=== PATIENT | male | born 2000 | race Caucasian/White ===

== ENCOUNTER 2024-10-15 13:32 | Emergency (ER) | payer OTHER, SELFPAY ==
[2024-10-15 14:07] VITALS: BP 145/77; PULSE 66; RESP 16; TEMP 36.8; O2SAT 99; BMI 25.5
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
--- NOTE | 2024-10-15 14:17 | PC.NURSE ---
Pt seem by provider and states UTD on Tetanus.
[2024-10-15] MEDS: Bacitracin Oint 0.9 GM PACKET 1 APPL TOPICAL (14:30)
[2024-10-15 14:35] VITALS: BP 145/77; PULSE 66; RESP 16; TEMP 36.8; O2SAT 99
--- OUTSIDE RECORDS SUMMARY | 2024-10-15 14:36 | XMS_ITS | Encounter Summary ---
Author Organization [facility] Address [address] [place] [address] Care Team Providers Care General Milling Superintendent Name Role Phone Ariadna Noland MD Primary Care Provider [phone] Encounter Details Date Type Department Care Team (Late st Contact Info) Description 09/29/2015 Scanned Document [facility] [address] [address] Pranav Do MD [address] [place] [phone] Social History Tobacco Use Types Packs/Day Years Used Date Smoking Tobacco: Never Alcohol Use Standard Drinks/Week Comments No 0 (1 standard drink = 0.6 oz pur e alcohol) Sex and Gender Information Value Date Recorded Sex Assigned at Male 09/22/2020 11:54 AM EDT Legal Sex Male 6:56 AM EST Gender Identity Male 09/22/2020 11:54 AM EDT Sexual Orientation Not on file documented as of this encounter Plan of Treatment Not on file documented as of this encounter Visit Diagnoses Not on filedocumented in this encounter Additional Health Concerns Infection Onset Date Last Indicated Resolved Time COVID-19 06/07/2021 06/07/2021 06/17/2021 7:18 PM EST documented as of this encounter Care Teams General Milling Superintendent Relationship Specialty Start Date End Date Ariadna Noland MD [address] [facility] [address] [place] [phone] PCP - General Pediatrics 10/06/13 03/28/24 documented as of this encounter
--- OUTSIDE RECORDS SUMMARY | 2024-10-15 14:36 | XMS_ITS | Encounter Summary ---
Author Organization [facility] Address [address] [place] [address] Care Team Providers Care Record Changer Tester Name Role Phone Ariadna Noland MD Primary Care Provider [phone] Encounter Details Date Type Department Care Team (Late st Contact Info) Description 10/27/2015 Scanned Document [facility] [address] [id number] Pranav Do MD [address] [place] [phone] Social History Tobacco Use Types Packs/Day [...] documented as of this encounter Care Teams Record Changer Tester Relationship Specialty Start Date End Date Ariadna Noland MD [address] [facility] [address] [place] [phone] PCP - General Pediatrics 10/06/13 03/28/24 documented as of this encounter
--- OUTSIDE RECORDS SUMMARY | 2024-10-15 14:37 | XMS_ITS | Clinical Summary ---
Author Organization [facility] Address [address] [place] [address] Care Team Providers Care Catastrophe Claims Supervisor Name Role Phone Pcp, No Primary Care Provider Unavailabl e Allergies No known active allergies Medications No known medications Social History Tobacco Use Types Packs/Day Years Used Date Smoking Tobacco: Never Smokeless Tobacco: Never Alcohol Use Standard Drinks/Week Comments Never 0 (1 standard drink = 0.6 oz pur e alcohol) AUDIT-C Answer Date Recorded Q1: How often do you have a drink containing alc ohol? Never 08/20/2020 Average Number of Drinks Not on file 021 Frequency of Binge Drinking Not on file 12/2020 Sex and Gender Information Value Date Recorded Sex Assigned at Not on file Legal Sex Male 3:06 PM EST Gender Identity Not on file Sexual Orientation Not on file Last Filed Vital Signs Vital Sign Reading Time Taken Comments Blood Pressure 144/78 08/20/2020 9:51 AM EST Pulse 73 08/20/2020 9:51 AM EST Temperature 36.8 ??C (98.2 ??F) 08/20/2020 9:51 AM ES T Respiratory Rate - - Oxygen Saturation 98% 08/20/2020 9:51 AM EST Inhaled Oxygen Concentration - - Weight 79.4 kg (175 lb) 08/20/2020 9:51 AM EST Height 182.9 cm (6') 08/20/2020 9:51 AM EST Body Mass Index 23.73 08/20/2020 9:51 AM EST Plan of Treatment Health Maintenance Due Date Last Done Comments Hepatitis C Virus Screening 2000 HIV Screening 2013 HPV Vaccines (1 - Male 3-dos e series) 2015 DTaP/Tdap/Td Vaccines (1 - Tdap) 2019 Hepatitis B Vaccines (1 of 3 - 19+ 3-dose series) 2019 Influenza Vaccine 01/15/2024 COVID-19 Vaccine (1 - 2023-2 5 season) 2024 Pneumococcal Vaccine: Pediat ismael (0-5 Years) and At-Risk Patients (6 to 49 Years) Aged Out No longer eligible b ased on patient's age to complete this topic Insurance O Care Teams Catastrophe Claims Supervisor Relationship Specialty Start Date End Date Pcp, No PCP - General General Medicine 08/20/20
--- OUTSIDE RECORDS SUMMARY | 2024-10-15 14:37 | XMS_ITS | Encounter Summary ---
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); Asteatosis cutis; Fixed drug eruption; Diseases of lips Social History Tobacco Use Types Packs/Day Years Used Date Smoking Tobacco: Never Smokeless Tobacco: Never Alcohol Use Standard Drinks/Week Comments No 0 (1 standard drink = 0.6 oz pur e alcohol) PHQ-2 Answer Date Recorded PHQ-2 Total Score 0 11/15/2021 Sex and Gender Information Value Date Recorded Sex Assigned at Male 09/22/2020 11:54 AM EDT Legal Sex Male 6:56 AM EST Gender Identity Male 09/22/2020 11:54 AM EDT Sexual Orientation Not on file documented as of this encounter Plan of Treatment Not on file documented as of this encounter Results * Triglycerides (09/14/2024 8:10 AM EDT) Triglycerides 73 See Comment mg/dL 09/14/2024 8:34 PM EDT PENDING SALE TO [facility] Comment: Triglycerides (mg/dL) ?Adults (>18 years) ? Children (<18 years) Desirable ?<150 ? Not Established Borderline-High ?150-199 ?Not Established High ? 200-499 ?Not Established ?? 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
--- OUTSIDE RECORDS SUMMARY | 2024-10-15 14:37 | XMS_ITS | Encounter Summary ---
Author Organization [facility] Address [address] [place] [phone] Care Team Providers Care Warehouse Operator Name Role Phone Ariadna Noland MD Primary Care Provider Encounter Details Date Type Department Care Team (Late st Contact Info) Description 07/25/2021 Scanned Document INTERFACE DEFAULT [address] [place] [phone] System, Provider Not In Social History Tobacco Use Types Packs/Day Years Used Date Smoking Tobacco: Never Smokeless Tobacco: Never Alcohol Use Standard Drinks/Week Comments No 0 (1 standard drink = 0.6 oz pur e alcohol) PHQ-2 Answer Date Recorded PHQ-2 Total Score 0 08/18/2020 Sex and Gender Information Value Date Recorded Sex Assigned at Male 09/22/2020 11:54 AM EDT Legal Sex Male 6:56 AM EST Gender Identity Male 09/22/2020 11:54 AM EDT Sexual Orientation Not on file documented as of this encounter Plan of Treatment Not on file documented as of this encounter Visit Diagnoses Not on filedocumented in this encounter Additional Health Concerns Assessment Noted Time PHQ-9 Depression Total Score: 1 08/19/19 21 11:49 AM EST documented as of this encounter Care Teams Warehouse Operator Relationship Specialty Start Date End Date Ariadna Noland MD [address] [phone] PCP - General Pediatrics 10/06/13 03/28/24 documented as of this encounter
--- OUTSIDE RECORDS SUMMARY | 2024-10-15 14:37 | XMS_ITS | Encounter Summary ---
Author Organization [facility] Address [address] [place] [address] Care Team Providers Care Print Shop Stenographer Name Role Phone Ariadna Noland MD Primary Care Provider [phone] Encounter Details Date Type Department Care Team (Late st Contact Info) Description 11/12/2018 Scanned Document [place] [address] External, Provider Social History Tobacco Use Types Packs/Day Years [...] COVID-19 06/07/2021 06/07/2021 06/17/2021 7:18 PM EST Assessment Noted Time PHQ-9 Depression Total Score: 0 01/17/20 18 3:11 PM EDT documented as of this encounter Care Teams Print Shop Stenographer Relationship Specialty Start Date End Date Ariadna Noland MD [address] [facility] [address] [place] [phone] PCP - General Pediatrics 10/06/13 03/28/24 documented as of this encounter
--- OUTSIDE RECORDS SUMMARY | 2024-10-15 14:37 | XMS_ITS | Encounter Summary ---
Author Organization 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 Children (<18 years) Desirable ?<150 ? Not Established Borderline-High ?150-199 ?Not Established High ? 200-499 ?Not Established ?? Blood Venipuncture / Unknown 07/26/2024 1:36 PM EST 07/26/2024 1:36 PM EST us Norma Neff MD LAB BLOOD ORDERABLES Final Resul t [facility] [address] [place] [address], 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
--- OUTSIDE RECORDS SUMMARY | 2024-10-15 14:37 | XMS_ITS | Clinical Summary ---
Author Organization [address] Address [address] [place] [phone] Care Team Providers Care Cotton Feeder Name Role Phone Unavailable Primary Care Provider Unavailabl e Allergies No known active allergies Medications CLARAVIS 40 mg capsule 06/07/2021 Active meloxicam (MOBIC) 15 mg tablet Take 1 tablet (15 mg total) by mouth daily. 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 Do., had surgery. Wears contacts. 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 06/16/19 23 Overview (03/17/2015): 02/24/2015 Dr Pranav Do S/p strabismus repair - unable to correct strabismus with prescription Discussed surgery if desires Encounters Date Type Department Care Team Description 09/14/2024 8:07 AM EDT - 09/14/2024 11:59 PM EDT Hospital Encounter [address] [place] [address] Norma Neff MD 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; Asteatosis cutis; Fixed drug eruption; Diseases of lips Discharge Disposition: Home or Self Care 09/14/2024 Transcribed Orders [address] [place] [address] Norma Neff MD 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); Asteatosis cutis; Fixed drug eruption; Diseases of lips 07/26/2024 1:33 PM EST - 07/26/2024 11:59 PM EST Hospital Encounter [address] [place] [address] Norma Neff MD 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; Asteatosis cutis; Diseases of lips Discharge Disposition: Home or Self Care 07/26/2024 Transcribed Orders [address] [place] [address] Norma Neff MD 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); Asteatosis cutis; Diseases of lips from Last 3 Months Immunizations Name Administration Dates Next Due COVID-19 Vaccine - PFIZER 08/06/2021,10/13/2020, 09/22/2020 DTaP 08/17/2004, 2,01/12/2001,11/03,2000 HPV9 07/24/2016,03/18/2016,12/08/2015 Hep A, ped/adol, 2 dose 11/04/2011,08/10/2010 Hep B, adolescent or pediatric 02/07/2003,2000,2000 Hib (PRP-T) 09/02/2001, 1,01/12/2001,11/03 Influenza, injectable, quadr ivalent, preservative free 06/22/2021 MMR 08/17/2004,06/22/2001 Meningococcal MCV4P - Menactra 12/16/2016,2011 Pneumococcal conjugate PCV 7 01/12/2001,11/04/19,2000 Polio (IPV) 08/17/2004, 2,2000,08/01 TB Screening (PPD/Quantiferon) 10/10/2017,2016 Tdap 08/18/2020,11/07/2010 Varicella, live 10/30/2009,12/02/2001 Family History Medical History Relation Name Comments Lymphoma Father Diabetes Paternal Grandmother High cholesterol Paternal Grandmother Hypertension Paternal Grandmother Relation Name Status Comments Father Alive Maternal Grandfather Alive Maternal Grandmother Alive Mother Leanna Graves Alive Other Jean-Pierre Stovall Alive step dad Paternal Grandfather Paternal Grandmother Alive Social History Tobacco Use Types Packs/Day Years [...] AM EDT Sexual Orientation Not on file Last Filed Vital Signs Vital Sign Reading Time Taken Comments Blood Pressure 120/64 06/14/2022 4:40 PM EST Pulse 66 05/06/2023 1:41 PM EST Temperature 36.6 ??C (97.9 ??F) 10/31/2021 9:41 AM ED T Respiratory Rate 16 05/06/2023 1:41 PM EST Oxygen Saturation 99% 05/06/2023 1:41 PM EST Inhaled Oxygen Concentration - - Weight 87.1 kg (192 lb) 05/06/2023 1:41 PM EST Height 185.4 cm (6' 1 ) 05/06/2023 1:41 PM EST Body Mass Index 25.33 05/06/2023 1:41 PM EST Plan of Treatment Health Maintenance Due Date Last Done Comments Hepatitis C screening 2018 Covid-19 vaccine series ( - season) 2024 08/06/2021, 10/13/2020, 09/22/2020 Influenza vaccine 02/14/2025 06/22/2021 DTaP/TDaP Vaccines (8 - Td or Tdap) 08/18/2030 08/18/2020, 11/07/2010, 08/17/2004, Additional history exists Tetanus adult (Td q 10,TDAP once) 08/18/2030 08/18/2020, 11/07/2010, 08/17/2004, Additional history exists RSV Immunization (1 - 1-dose 75+ series) 2075 Pneumococcal Vaccine (2 - 49 years) Aged Out 01/12/2001, 2000, 2000 No longer eligible based on patient's age to complete this topic HIB Vaccines Completed 09/02/2001, 03/17, 01/12/2001, Additional history exists Hepatitis B vaccine series Completed 02/07, 04/13/2001, 2000 IPV Vaccines Completed 08/17/2004, 11/14, 2000, Additional history exists MMR Vaccines Completed 08/17/2004, 06/22/2001 Varicella Vaccines Completed 10/30/2009, 12/02/2001 Hepatitis A Vaccines Completed 11/04/2011, 08/10/19 11 HPV vaccine series Completed 07/24/2016, 1 , 12/08/2015 Meningococcal Vaccine Completed 12/16/2016, 012 HIV screening Discontinued Rotavirus Vaccines Aged Out No longer eligible based on patient's age to complete this topic Procedures Procedure Name Priority Date/Time Associated Diagnosis Comments TRIGLYCERIDES Routine 09/14/2024 8:10 AM EDT 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 Triglycerides 73 See Comment mg/dL 09/14/2024 8:34 PM EDT [facility] Comment: Triglycerides (mg/dL) ?Adults (>18 years) ? Children (<18 years) Desirable ?<150 ? Not Established Borderline-High ?150-199 ?Not Established High ? 200-499 ?Not Established ?? Blood Venipuncture / Unknown 09/14/2024 8:10 AM EDT 09/14/2024 8:10 AM EDT us Norma Neff MD LAB BLOOD ORDERABLES Final Resul t [facility] [address] [place] [address] * ALT (07/26/2024 1:36 PM EST) Alanine Aminotransferase (ALT) 24 9 - 59 U/L 07/26/2024 9:38 PM EST [facility] Comment:Calcium dobesilate c an cause artificially low ALT results at therapeutic concentrations Blood Venipuncture / Unknown 07/26/2024 1:36 PM EST 07/26/2024 1:36 PM EST us Norma Neff MD LAB BLOOD ORDERABLES Final Resul t [facility] [address] [place] [address] from Last 3 Months Insurance [employer] on file [employer] on file CIGNA on file CIGNA on file on file on file CIGNA on file CIGNA on file CIGNA [facility]
--- OUTSIDE RECORDS SUMMARY | 2024-10-15 14:37 | XMS_ITS | Encounter Summary ---
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 Children (<18 years) Desirable ?<200 ? <170 Borderline-High ?200-239 ?170-199 High ? >=240 ?>=200 ? HDL 54 >=40 mg/dL 03/26/2021 5:06 PM T [facility] Triglycerides 50 See Comment mg/dL 03/26/2021 5:06 PM T [facility] Comment: Triglycerides (mg/dL) ?Adults (>18 years) ? Children (<18 years) Desirable ?<150 ? Not Established Borderline-High ?150-199 ?Not Established High ? 200-499 ?Not Established ?? Chol/HDL Ratio 2.9 0.0 - 5.0 03/26/2021 5:06 PM [facility] LDL Calculated 91 See Comment mg/dL 03/26/2021 5:06 PM [facility] Comment: LDL Cholesterol (mg/dL) ?Adults (>18 years) ? Children (<18 years) Desirable ?<100 ? <110 Above Desirable ?100-129 ?Not Established Borderline-High ?130-159 ?110- 129 High ? 160-189 ?>=130 Very High? >=190 ? Not Established Blood Venipuncture / Unknown 03/26/2021 12:07 PM EDT 03/26/2021 12:07 PM EDT us Minnie Mckeon APRN LAB BLOOD ORDERABLES Final Re sult Performing Organization Address City/State/[facility] Co de Phone Number [address] [phone] * (ABNORMAL) Hepatic function panel (03/26/2021 12:07 PM EDT) Total Bilirubin 0.7 <=1.2 mg/dL 03/26/20 5:06 PM [facility] Bilirubin, Direct <0.2 <=0.3 mg/dL 2020 5:06 PM [facility] Alkaline Phosphatase 72 9 - 122 U/L 04/2021 5:06 PM T [facility] Alanine Aminotransferase (ALT) 25 9 - 59 U/L 03/26/2021 5:06 PM T [facility] Comment:Calcium dobesilate c an cause artificially low ALT results at therapeutic concentrations Aspartate Aminotransferase (AST) 48(H) 10 - 35 U/L 03/26/2021 5:06 PM [facility] AST/ALT Ratio 1.9 See Comment 03/26/2021 5:06 PM [facility] Comment: Adult with mild elevations of transaminases (< 5 times upper limit of normal): AST/ALT > 2 suggests alcoholic liver injury AST/ALT < 1 suggests non-alcoholic fatty liver disease (NAFLD) [place] (healthy): AST/ALT can be > 3 on day 0 AST/ALT < 2 by day 5 The thresholds provided focus on the most common etiologies of elevated serum transaminase levels and the associated alteration of AST:ALT ratios; they are not intended to exclude other feasible and clinically appropriate possibilities Total Protein 7.0 6.6 - 8.7 g/dL 03/26/2021 5:06 PM EDT [facility] Albumin 4.4 3.6 - 4.9 g/dL 03/26/2021 5:06 PM EDT [facility] Globulin 2.6 g/dL 03/26/2021 5:06 PM EDT [facility] A/G Ratio 1.7 1.0 - 2.2 03/26/2021 5:06 PM EDT [facility] Blood Venipuncture / Unknown 03/26/2021 12:07 PM EDT 03/26/2021 12:07 PM EDT Minnie Mckeon APRN LAB BLOOD ORDERABLES Final Re sult [address] [phone] documented in this encounter Visit Diagnoses Diagnosis 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- Primary Other specified hypertrophic and atrophic condition of skin documented in this encounter Additional Health Concerns Infection Onset Date Last Indicated Resolved Time COVID-19 06/07/2021 06/07/2021 06/17/2021 7:18 PM EST Assessment Noted Time PHQ-9 Depression Total Score: 1 08/19/19 21 11:49 AM EST documented as of this encounter Care Teams Rn Clinical Coordinator Relationship Specialty Start Date End Date Ariadna Noland MD [address] [phone] PCP - General Pediatrics 10/06/13 03/28/24 documented as of this encounter
--- OUTSIDE RECORDS SUMMARY | 2024-10-15 14:37 | XMS_ITS | Encounter Summary ---
Author Organization [facility] and [facility] Address [address] [place] [phone] Care Team Providers Care Commercial Food Instructor Name Role Phone Ariadna Noland MD Primary Care Provider [phone] Encounter Details Date Type Department Care Team (Late st Contact Info) Description 03/02/2024 Transcribed Orders [facility] [address] [place], [place] [id number] Norma Neff MD [address] [place] [phone] Nodular elastosis with cysts and comedones [...] documented as of this encounter Results * ALT (03/08/2024 10:12 AM EDT) Alanine Aminotransferase (ALT) 18 9 - 59 U/L 03/08/2024 4:26 PM EDT [facility] Comment:Calcium dobesilate c an cause artificially low ALT results at therapeutic concentrations Blood Venipuncture / Unknown 03/08/2024 10:12 AM EDT 03/08/2024 10:12 AM EDT us Norma Neff MD LAB BLOOD ORDERABLES Final Resul t Performing Organization Address City/State/[facility] Co de Phone Number [facility] [address] [place] [address], [facility] [phone] * Triglycerides (03/08/2024 10:12 AM EDT) Pathologist [facility] Triglycerides 41 See Comment mg/dL 03/08/2024 4:26 PM EDT [facility] Comment: Triglycerides (mg/dL) ?Adults (>18 years) ? Children (<18 years) Desirable ?<150 ? Not Established Borderline-High ?150-199 ?Not Established High ? 200-499 ?Not Established ?? Blood Venipuncture / Unknown 03/08/2024 10:12 AM EDT 03/08/2024 10:12 AM EDT us Norma Neff MD LAB BLOOD ORDERABLES Final Resul t [facility] [address] [place] [address] documented in this encounter Visit Diagnoses Diagnosis Nodular elastosis with cysts and comedones of Favfavian and Kaseyt- Primary Other specified hypertrophic and atrophic condition of skin documented in this encounter Additional Health Concerns Assessment Noted Time PHQ-9 Depression Total Score: 1 11/16/19 22 8:02 AM EDT documented as of this encounter Care Teams Commercial Food Instructor Relationship Specialty Start Date End Date Ariadna Noland MD [address] [phone] PCP - General Pediatrics 10/06/13 03/28/24 documented as of this encounter
--- OUTSIDE RECORDS SUMMARY | 2024-10-15 14:37 | XMS_ITS | Encounter Summary ---
Author Organization [facility] Address [address] [place] [address] Care Team Providers Care Fire Alarm Installer Name Role Phone Ariadna Noland MD Primary Care Provider [phone] Encounter Details Date Type Department Care Team (Late st Contact Info) Description 11/27/2017 Scanned Document [place] [address] External, Provider Social History Tobacco Use Types [...] Noted Time PHQ-9 Depression Total Score: 0 12/17/19 17 9:57 AM EDT documented as of this encounter Care Teams Fire Alarm Installer Relationship Specialty Start Date End Date Ariadna Noland MD [address] [place] [phone] PCP - General Pediatrics 10/06/13 03/28/24 documented as of this encounter
--- OUTSIDE RECORDS SUMMARY | 2024-10-15 14:37 | XMS_ITS | Encounter Summary ---
Author Organization [facility] and [facility] Address [address] [place] [phone] Care Team Providers Care Search Manager Name Role Phone Ariadna Noland MD Primary Care Provider [phone] Encounter Details Date Type Department Care Team (Latest Contact Info) Description 02/01/2021 Transcribed Orders [place] [facility] - [address] [address] Minnie Mckeon, SPECIAL POLICE 1951 Dar[address] Arbol[address] [phone] Nodular elastosis with cysts and comedones of [...] on file documented as of this encounter Procedures Procedure Name Priority Date/Time Associated Diagnosis Comments HEPATIC FUNCTION PANEL Routine 02/01/2021 10:56 AM EDT 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 LIPID PANEL Routine 02/01/2021 10:56 AM EDT 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 documented in this encounter Results * Hepatic function panel (02/01/2021 10:56 AM EDT) Total Bilirubin 1.0 <=1.2 mg/dL 02/02/20 2:37 PM EDT [facility] Bilirubin, Direct <0.2 <=0.3 mg/dL 2020 2:37 PM EDT [facility] Alkaline Phosphatase 69 9 - 122 U/L 2:37 PM EDT [facility] Alanine Aminotransferase (ALT) 14 9 - 59 U/L 02/01/2021 2:37 PM EDT [facility] Comment:Calcium dobesilate c an cause artificially low ALT results at therapeutic concentrations Aspartate Aminotransferase (AST) 32 10 - 35 U/L 02/01/2021 2:37 PM EDT [facility] AST/ALT Ratio 2.3 See Comment 02/01/2021 2:37 PM EDT [facility] Comment: Adult with mild elevations of transaminases (< 5 times upper limit of normal): AST/ALT > 2 suggests alcoholic liver injury AST/ALT < 1 suggests non-alcoholic fatty liver disease (NAFLD) (healthy): AST/ALT can be > 3 on day 0 AST/ALT < 2 by day 5 The thresholds provided focus on the most common etiologies of elevated serum transaminase levels and the associated alteration of AST:ALT ratios; they are not intended to exclude other feasible and clinically appropriate possibilities Total Protein 7.4 6.6 - 8.7 g/dL 02/01/2021 2:37 PM EDT [facility] Albumin 4.4 3.6 - 4.9 g/dL 02/01/2021 2:37 PM EDT [facility] Globulin 3.0 2.3 - 3.5 g/dL 02/01/2021 2:37 PM EDT [facility] A/G Ratio 1.5 1.0 - 2.2 02/01/2021 2:37 PM EDT [facility] Blood Venipuncture / Unknown 02/01/2021 10:56 AM EDT 02/01/2021 10:56 AM EDT us Minniejoceline Mckeon FAZAL LAB BLOOD ORDERABLES Final Re sult [facility] [address] [place] [address], [facility] [phone] * Lipid panel (02/01/2021 10:56 AM EDT) Cholesterol 149 See Comment mg/dL 02/01/2021 2:37 PM EDT [facility] Comment: Total Cholesterol (mg/dL) ?Adults (>18 years) ? Children (<18 years) Desirable ?<200 ? <170 Borderline-High ?200-239 ?170-199 High ? >=240 ?>=200 ? HDL 52 >=40 mg/dL 02/01/2021 2:37 PM EDT [facility] Triglycerides 49 See Comment mg/dL 02/01/2021 2:37 PM EDT [facility] Comment: Triglycerides (mg/dL) ?Adults (>18 years) ? Children (<18 years) Desirable ?<150 ? Not Established Borderline-High ?150-199 ?Not Established High ? 200-499 ?Not Established ?? Chol/HDL Ratio 2.9 0.0 - 5.0 02/01/2021 2:37 PM EDT [facility] LDL Calculated 87 See Comment mg/dL 02/01/2021 2:37 PM EDT [facility] Comment: LDL Cholesterol (mg/dL) ?Adults (>18 years) ? Children (<18 years) Desirable ?<100 ? <110 Above Desirable ?100-129 ?Not Established Borderline-High ?130-159 ?110- 129 High ? 160-189 ?>=130 Very High? >=190 ? Not Established Blood Venipuncture / Unknown 02/01/2021 10:56 AM EDT 02/01/2021 10:56 AM EDT us Minnie Mckeon APRN LAB BLOOD ORDERABLES Final Re sult Performing Organization Address City/[facility] Co de Phone Number [facility] [address] [place] [address], [facility] [phone] documented in this encounter Visit Diagnoses Diagnosis [...] documented as of this encounter Care Teams Search Manager Relationship Specialty Start Date End Date Ariadna Noland MD [address] [phone] PCP - General Pediatrics 10/06/13 03/28/24 documented as of this encounter
--- OUTSIDE RECORDS SUMMARY | 2024-10-15 14:37 | XMS_ITS | Encounter Summary ---
Author Organization [facility] Address [address] [place] [address] Care Team Providers Care Supervisor Filtration Name Role Phone Pcp, No Primary Care Provider Unavailabl e Encounter Details Date Type Department Care Team (Late st Contact Info) Description 08/20/2020 9:58 AM EST Hospital Encounter [facility] [address] [place] [address] Dawood Iqbal MD [address] [place] [address] Social History Tobacco Use Types Packs/Day Years [...] on file Sexual Orientation Not on file COVID-19 Exposure Response Date Recorded In the last month, have you been in contact with someone who was confirmed or suspected to have Coronavirus / COVID-19? No / Unsure 08/20/2020 9:45 AM EST documented as of this encounter Functional Status documented as of this encounter Plan of Treatment Not on file documented as of this encounter Procedures Procedure Name Priority Date/Time Associated Diagnosis Comments XR ANKLE 3+ VIEWS-RIGHT STAT 08/20/2020 10:06 AM EST Acute right ankle pain documented in this encounter Results * XR Ankle 3+ views-Right (08/20/2020 10:06 AM EST) Anatomical Region Laterality Modality Ankle Right Computed Radiogr aphy 08/20/2020 10:1 3 AM EST Impressions 08/20/2020 10:13 AM EST Normal exam. Narrative 08/20/2020 10:13 AM EST History: acute right ankle pain ro fx Comparison: None. Technique: AP, lateral, and oblique views of the right ankle were obtained. Findings: ??No fracture or dislocation. Normal ankle mortise. No soft tissue swelling or foreign body. Procedure Note Owen Meier MD - 08/20/2020 History: acute right ankle pain ro fx Comparison: None. Technique: AP, lateral, and oblique views of the right ankle wereobtained. Findings: No fracture or dislocation. Normal ankle mortise. No softtissue swelling or foreign body. IMPRESSION: Normal exam. us Kevin Reynolds PA-C [facility] ORDERABLES Final Result documented in this encounter Visit Diagnoses Not on filedocumented in this encounter Care Teams Supervisor Filtration Relationship Specialty Start Date End Date Pcp, No PCP - General General Medicine 08/20/20 documented as of this encounter
--- OUTSIDE RECORDS SUMMARY | 2024-10-15 14:37 | XMS_ITS | Encounter Summary ---
Author Organization [facility] Address [address] [place] [address] Care Team Providers Care Welding Machine Feeder Name Role Phone Ariadna Noland MD Primary Care Provider Encounter Details Date Type Department Care Team (Late st Contact Info) Description 02/24/2015 Scanned Document [facility] [address] [id number] Pranav Do MD [address] [place] [phone] Social History Tobacco Use Types Packs/Day Years Used Date Smoking Tobacco: Never Alcohol Use Standard Drinks/Week Comments Not Asked 0 (1 standard drink = 0.6 oz [...] documented as of this encounter Care Teams Welding Machine Feeder Relationship Specialty Start Date End Date Ariadna Noland MD [address] [facility] [address] [place] [phone] PCP - General Pediatrics 10/06/13 03/28/24 documented as of this encounter
--- OUTSIDE RECORDS SUMMARY | 2024-10-15 14:37 | XMS_ITS ---
Author Name [facility] Organization Unknown Results Test Name/Text Value Interpretation Date Range Source Trigl SerPl-mCnc 73mg/dL Normal [id number] - [facility] Trigl SerPl-mCnc 163mg/dL Above high normal [id number] - [facility] ALT SerPl w/o P-5'-P-cCnc 24U/L Normal [id number] 9 - 59 [facility] ALT SerPl w/o P-5'-P-cCnc 18U/L Normal [id number] 9 - 59 [facility] Trigl SerPl-mCnc 41mg/dL Normal [id number] - [facility] History of Medication Use Medication Directions Dispensed Refills Start Date End Date Stat triamcinolone acetonide (cream) Apply twice daily to the arms and hands as needed for rash. Use no more than 2 weeks at a time. 07/06/2024 completed triamcinolone acetonide (cream) Apply twice daily to the arms and hands as needed for rash. Use no more than 2 weeks at a time. 07/06/2024 completed Accutane (capsule) Take one pill daily with a fatty food. iPLEDGE: [id number] 05/06/2024 completed Arazlo (lotion) Apply pea size amount to acne nightly. 01/08/2022 completed naproxen (NAPROSYN) 500 mg tablet Take 1 tablet (500 mg total) by mouth 2 (two) times daily with breakfast and dinner. 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 ProblemAct [facility] History of asthma active EncounterDiagnosisAct [facility] Immunizations Vaccine Date Source Lot Number Status COVID-19 Vaccine - PFIZER 08/06/2021 [facility] completed Influenza, injectable, quadr ivalent, preservative free 06/22/2021 [facility] [id number] completed COVID-19 Vaccine - PFIZER 10/13/2020 [facility] [id number] completed COVID-19 Vaccine - PFIZER 09/22/2020 [facility] [id number] completed [id number] completed TB Screening (PPD/Quantiferon) 10/10/2017 [facility] [id number] 4 completed Meningococcal MCV4P - Menactra 12/16/2016 [facility] U5513 AB completed Meningococcal MCV4P - Menactra 12/16/2016 [facility] U5513 AB completed TB Screening (PPD/Quantiferon) 12/16/2016 [id number] [id number] completed HPV9 07/24/2016 [facility] [id number] completed HPV9 03/18/2016 [facility] [id number] completed HPV9 12/08/2015 [facility] [id number] completed Hep A, ped/adol, 2 dose 11/04/2011 [facility] c ompleted Meningococcal MCV4P - Menactra 11/04/2011 [facility] completed Tdap 11/07/2010 [facility] completed Hep A, ped/adol, 2 dose 08/10/2010 [facility] c ompleted Varicella 10/30/2009 [facility] completed DTaP 08/17/2004 [facility] completed IPV 08/17/2004 [facility] completed MMR 08/17/2004 [facility] completed Hep B, adolescent or pediatric 02/07/2003 [facility] completed Hep B, adolescent or pediatric 02/07/2003 [facility] completed IPV 12/02/2001 [facility] completed Varicella 12/02/2001 [facility] completed DTaP 09/02/2001 [facility] completed Hib (PRP-T) 09/02/2001 [facility] completed MMR 06/22/2001 [facility] completed Hep B, adolescent or pediatric 04/13/2001 [facility] completed Hib (PRP-T) 04/13/2001 [facility] completed DTaP 01/12/2001 [facility] completed Hib (PRP-T) 01/12/2001 [facility] completed Pneumococcal conjugate PCV 7 01/12/2001 [facility] completed DTaP 2000 [facility] completed Hib (PRP-T) 2000 [facility] completed IPV 2000 [facility] completed Pneumococcal conjugate PCV 7 2000 [facility] completed Hep B, adolescent or pediatric 2000 [facility] completed Pneumococcal conjugate PCV 7 2000 [facility] completed DTaP 2000 [facility] completed IPV 2000 [facility] completed Encounters Encounter Type Encounter Reason Primary Diagnosis Location Date Ambulatory [facility] 10/[address] [facility] 09/[address] [facility] 08/[address] [facility] 07/[address] [facility] 06/[address] [facility] 05/[address] [facility] 03/02 [facility]ulatory [facility] 05/[facility]/2023 Care Team Organization Name Specialty Phone Email Start Date End Da te [facility]- Other 08/25/2024 [facility] SIVAN Noland Primary Care 07/18/1910/03/2024 [facility] 04/28/2024 [facility] 03/01/2024 [facility]- Other DEBORA NOLADN Primary Care [facility] Debora Contreras Primary Care 08/24/2023 [facility] Ludin Contreras Primary Care 08/24/2023 [facility] Primary Care 05/06/2023 [facility] NO PCP Primary Care 08/20/2020 08/20/2020
--- OUTSIDE RECORDS SUMMARY | 2024-10-15 14:37 | XMS_ITS | Encounter Summary ---
Author Organization [facility] Address [address] [place] [phone] Care Team Providers Care Commissions Manager Name Role Phone Ariadna Noland MD Primary Care Provider [phone] Encounter Details Date Type Department Care Team (Late st Contact Info) Description 08/24/2023 Scanned Document INTERFACE DEFAULT [address] [place] [id number] System, Provider Not In Social History Tobacco [...] documented as of this encounter Care Teams Commissions Manager Relationship Specialty Start Date End Date Ariadna Noland MD [address] [phone] PCP - General Pediatrics 10/06/13 03/28/24 documented as of this encounter
--- OUTSIDE RECORDS SUMMARY | 2024-10-15 14:37 | XMS_ITS | Encounter Summary ---
Author Organization [facility] Address [address] [place] [phone] Care Team Providers Care Dark Room Attendant Name Role Phone Ariadna Noland MD Primary Care Provider [phone] Encounter Details Date Type Department Care Team (Latest Contact Info) Description 05/15/2021 Transcribed Orders [place] [facility] [address] [place] [address] Minnie Mckeon, FAZAL 1951 [address] [phone] Nodular elastosis with cysts and comedones of Favre and Kaseyt (Primary Dx) Social History Tobacco Use Types [...] documented as of this encounter Visit Diagnoses Diagnosis Nodular elastosis [...] documented as of this encounter Care Teams Dark Room Attendant Relationship Specialty Start Date End Date Ariadna Noland MD [address] [phone] PCP - General Pediatrics 10/06/13 03/28/24 documented as of this encounter
== END 2024-10-15 14:37 | disposition home or self-care (01) ==
PROVIDERS: Emergency Provider Emergency Medicine
DX: T22.252A Burn of second degree of left shoulder, initial encounter (principal); T22.251A Burn of second degree of right shoulder, initial encounter; X13.1XXA Other contact with steam and other hot vapors, initial encounter; Y93.89 Activity, other specified; Y92.89 Other specified places as the place of occurrence of the external cause; Y99.1 Military activity
CPT/HCPCS: 99282; 99283